=== PATIENT | female | born 1990 | race Caucasian/White ===

== ENCOUNTER 2024-09-17 09:43 | Outpatient (AMB) | payer OTHER, SELFPAY ==
--- NOTE | 2024-09-17 09:46 | A.OFFPC_ITS ---
Vital Signs 3 09/17/24 09:55 Height 5 ft 3 in Weight 169 lb 8 oz BMI 30.0 BP 122/85 Blood Pressure Location Rt brachial Position Sitting Respiration 16 Pulse 92 Pulse Source Pulse Oximeter Temp 98.2 F Temp Source Oral Pulse Oximetry (%) 100 Oxygen Delivery Method Room Air Intake Visit Reasons: est care/ headaches Intake Note: patient here for new patient visit c/o headaches Analytical Laboratory Technician Required: Yes Analytical Laboratory Technician Language: Hydroelectric Plant Maintainer Name: danay [id number] Information Interpreted: non-clinical & clinical Is last menstrual period known: Yes Last menstrual period: 07/08/24 Post menopausal: No Patient : No Allergies No Known Allergies Allergy (Verified 09/17/24 10:13) Medication List - Last Reconciled 09/17/24 by ABEL De Santiago No Known Home Meds Tobacco use date assessed: 09/17/24 Dental Screening Dental Screen Date: 09/17/24 Did you have a dental visit in the last 12 months?: Yes Did you have a dental problem in the last 6 months where you did not have access to dental care?: No Was dental information given to patient?: Patient has dentist HPI HPI Comments 2 History of Present Illness0 Details 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 Having R sided neck and head pain since. Denies any focal neuro complaints other than this pain, which is described as musculoskeletal. Palpitations: new. Thought r/t to OCP. Called [facility] who told her to fu with me as PCP. Denies assoc cardiac complaints. She is only 3 months post- Gastritis with hx of H Pylori - repotrs EGD in the past, would like GI referral for repeat EGD and tx. Also has hemorrhoids; not using otc meds. : during preg had recurrent UTI,baby born 05/2024; when puts arms around her has some on the L side. Denies any urinary complaints at this time. On OCP Exam: General: Well developed, well nourished, in no acute distress. Appears stated age. Head: Normocephalic, atraumatic. Eyes: Pupils are equal, round and reactive to light and accommodation. Conjunctivae are clear. Vision grossly normal. Ears: TMs clear AU, EACS WNL Nose: Patent, without discharge. Mouth: There are no ulcers or lesions noted. No inflammation, no post nasal drip, no plaques nor exudates. Neck: Supple, no adenopathy or thyromegaly. Lungs: Clear to auscultation bilaterally. No rales, rhonchi or wheeze noted. Good air flow in all iraheta. Heart: Regular rate and rhythm. No murmurs, click, rubs or gallops are noted. Abdomen: Bowel sounds present in all quadrants. The abdomen is soft, nontender, with no masses or organomegaly noted. No hernias are noted. Musculoskeletal: Joints are nontender, without swelling, redness, or effusions. Range of motion is observed to be normal. Pulses: Peripheral pulses are equal and palpable bilaterally. Extremities: No clubbing, cyanosis nor edema is noted. Neurologic: Gait and station normal. Cranial Nerves 2-12 intact. Motor strength grossly symmetrical and intact. No sensory loss. Balance normal. Skin: No rashes, ulcers, or lesions noted. Turgor is good. Skin color is good. Hair and nails are without abnormalities. Psych: Normal eye contact, affect and mood appropriate, and normal interactions. Patient is alert and appropriate to context. Plan: Check UA today along w/ labs Refer to Uro Refer to GI for GI c/o Use OTC products to treat hemorrhoids Refer to Neuro RTO 1 year CPE, sooner PRN An additional 30 minutes was spent addressing the problem(s) noted at todays visit. This includes time spent before the visit reviewing the chart, time spent during the visit, and time spent after the visit on documentation reviewing laboratory results, diagnostic imaging, medications, performing a medically necessary evaluation, counseling on diagnoses, care coordination, ordering appropriate tests, ordering appropriate medications, review of tests performed by other providers, reporting test results with the patient, communication with other healthcare providers. [facility] Medical History (Updated 09/17/24 @ 11:04 by Debora Mojica, KEY WORKER-) Headache Heart palpitations History of Helicobacter pylori infection Surgical History (Updated 09/17/24 @ 10:03 by Jordyn Haney MA) H/O: Family History (Updated 09/17/24 @ 10:02 by Jordyn Haney MA) Mother High blood pressure Social History Housing: House Patient Tobacco Use Status: Never used Tobacco e-Cigarette/Vaping Use: Never Used Second Hand Smoke Exposure: No service: No Current occupational status: unemployed Current occupational exposures/hazards: No Cognitive needs: No Hearing needs: No Vision needs: No Female Reproductive History Menstrual Date of last menstrual period: 07/08/24 Questionnaire PHQ-9 Over the last 2 weeks, how often have you been bothered by any of the following problems? 1. Little interest or pleasure in doing things: not at all 2. Feeling down, depressed, or hopeless: not at all 3. Trouble falling or staying asleep, or sleeping too much: not at all 4. Feeling tired or having little energy: not at all 5. Poor appetite or overeating: not at all 6. Feeling bad about yourself - or that you are a failure or have let yourself or your family down: not at all 7. Trouble concentrating on things, such as reading the newspaper or watching television: not at all 8. Moving or speaking so slowly that other people could have noticed. Or the opposite - being so fidgety or restless that you have been moving around a lot more than usual: not at all 9. Thoughts that you would be better off or of hurting yourself in some way: not at all Total score: 0 Depression Screening Interpretation: Negative Depression Screening Done: Yes 60033 - PHQ-9 Billing: Yes Source: Developed by Drs. Aravind Colon, Evelyn Howell, Kunal Salvador and colleagues, with an educational elsie from [employer]. Thrive Questionnaire Date Thrive assessed: 09/17/24 I am a: Patient What is your living situation today?: I have a steady place to live Within the past 12 months, did the food you bought not last and you didn't have the money to get more?: Never true Within the past 12 months, did you worry whether your food would run out before you got money to buy more?: Never true Do you have trouble paying for medicines?: No Do you have trouble getting transportation to medical appointments?: No Do you have trouble paying your heating and electricity bill?: No Do you have trouble taking care of your child, family member or friend?: No Do you have trouble with day-to-day activities such as bathing, preparing meals, shopping, managing finances, etc.?: No Are you currently unemployed and looking for a job?: No Are you interested in more education?: No Please select the resources that you would like help with: None Currently or been in a relationship where the following occur: No concerns reported THRIVE Score: 0 AUDIT C Alcohol Use Questionnaire (AUDIT-C) 1. How often do you have a drink containing alcohol?: Monthly or less 2. How many drinks containing alcohol do you have on a typical day when you are drinking?: 1 or 2 3. How often do you have six or more drinks on one occasion?: Never Total Score: 1 Score Reviewed/Action Taken: Yes CHAR-7 AMB Questionnaire CHAR-7 Date CHAR - 7 assessed: 09/17/24 Feeling nervous, anxious, or on edge: 0 = Not at all Not being able to stop or control worryin = Not at all Worrying too much about different things: 0 = Not at all Trouble relaxin = Not at all Being so restless that it is hard to sit still: 0 = Not at all Becoming easily annoyed or irritable: 0 = Not at all Feeling afraid as if something awful might happen: 0 = Not at all Total CHAR-7 score (0-4 normal; 5-9 mild; 10-14 moderate; 15-21 severe): 0 Source: Developed by Drs. Aravind Colon, Evelyn Howell, Kunal Salvador and colleagues, with an educational elsie from [employer]. CHAR-7 Assessment Billing CHAR-7 Assessment Tool: CHAR-7 Assessment 13873 Physical exam (Primary Care) Vital Signs: Last Vital Signs Temp 98.2 F 09/17/24 09:55 Pulse 92 09/17/24 09:55 Resp 16 09/17/24 09:55 BP 122/85 09/17/24 09:55 Pulse Ox 100 09/17/24 09:55 Oxygen Delivery Method Room Air 09/17/24 09:55 BMI result Body Mass Index 30.0 BMI Assessment/Plan discussion: High Tobacco/Smoking Status: Tobacco use Status Tobacco use date assessed 09/17/24 09/17/24 10:03 Patient Tobacco Use Status Never used Tobacco 09/17/24 10:03 e-Cigarette/Vaping Use Never Used 09/17/24 10:03 PHQ-9: PHQ-9 Score PHQ-9: Total score 0 09/17/24 10:11 Depression Screening Interpretation: Negative Thrive Assessment: Date of Thrive Assessment Date Thrive assessed 09/17/24 09/17/24 10:03 Currently or been in a relationship where the following occur: No concerns reported Coding Level of Care Code Est Pt Level 4 (21761) New Pt Prev Care 18-39yr(24476 Diagnoses Encounter for general adult medical examination with abnormal findings Z00.01 Obesity (BMI 30-39.9) E66.9 Recurrent UTI N39.0 Laboratory exam ordered as part of routine general medical examination Z00.00 Heart palpitations R00.2 Hemorrhoids, unspecified hemorrhoid type K64.9 Hemorrhoid type: unspecified Chronic post-traumatic headache, not intractable G44.329 Headache chronicity pattern: chronic headache Intractability: not intractable Impacted cerumen, bilateral H61.23 Additional Codes CHAR-7 Assessment Billing - CHAR-7 Assessment Tool: CHAR-7 Assessment 59974 ([id number]) PHQ-9 - 89475 - PHQ-9 Billing: Yes ([id number]) Assessment & Plan Assessment & Plan (1) Encounter for general adult medical examination with abnormal findings: Code(s): Z00.01 - Encounter for general adult medical examination with abnormal findings Category: Medical (2) Obesity (BMI 30-39.9): Code(s): E66.9 - Obesity, unspecified Category: Medical (3) Recurrent UTI: Comment: during no sx at this time Code(s): N39.0 - Urinary tract infection, site not specified Category: Medical (4) Laboratory exam ordered as part of routine general medical examination: Code(s): Z00.00 - Encounter for general adult medical examination without abnormal findings Category: Medical (5) Heart palpitations: Code(s): R00.2 - Palpitations Category: Medical (6) Hemorrhoids: Code(s): K64.9 - Unspecified hemorrhoids Category: Medical Qualifiers: Hemorrhoid type: unspecified Qualified Code(s): K64.9 - Unspecified hemorrhoids (7) Headache, post-traumatic: Code(s): G44.309 - Post-traumatic headache, unspecified, not intractable Category: Medical Qualifiers: Headache chronicity pattern: chronic headache Intractability: not intractable Qualified Code(s): G44.329 - Chronic post-traumatic headache, not intractable (8) Impacted cerumen, bilateral: Comment: offered and declined in office ear lavage Code(s): H61.23 - Impacted cerumen, bilateral Category: Medical Plan Earwax (Cerumen Impaction) Created in Ears Earwax, called cerumen, is produced by special wax-forming glands located in the skin of the outer one-third of the ear canal. It is normal to have cerumen in ear canal as this waxy substance serves as a self-cleaning agent with protective, lubricating, and antibacterial properties. The absence of earwax may result in dry, itchy ears. Self-cleaning means there is a slow and clinic mgr movement of earwax and skin cells from the eardrum to the ear opening. Old earwax is constantly being transported, assisted by chewing and jaw motion, from the ear canal to the ear opening where, most of the time, it dries, flakes, and falls out. What Are the Symptoms of an Earwax Blockage? Symptoms of an earwax problem may include: Earache Feeling of plugged hearing or fullness in the ear Partial hearing loss that gets worse Tinnitus, ringing, or noises in the ear Itching, odor, or discharge Coughing Pain Infection What Causes Earwax Blockage? When a patient has wax blockage against the eardrum, it is often because they have been probing the ear with such things as cotton-tipped swabs, edna pins, or twisted napkin corners. These objects only push the wax in deeper in the ear canal. Why Is It Dangerous to Use Swabs to Remove Earwax? Wax blockage is one of the most common causes of hearing loss. This is often caused by attempts to clean the ear with cotton swabs. Most cleaning attempts merely push the wax deeper into the ear canal which is shaped like an hourglass, causing a blockage at the narrowing part of the ear canal. In addition, accidental trauma to the ear drum or ear bones can occur if the swab is pushed too deep. Good intentions to keep ears clean may lessen the ability to hear. The ear is a delicate and complicated body part, including the skin of the ear canal and the eardrum. Therefore, special care should be given to this part of the body. Discontinue the habit of inserting cotton-tipped swabs or other objects into the ear canals. What Are the Treatment Options? Cleaning a working ear can be done by washing it with a soft cloth, but do not insert anything into the ear. Ideally, the ear canals should never have to be cleaned. However, that isn?t always the case. The ears should be cleaned when enough earwax gathers to cause symptoms or to prevent a needed assessment of the ear by your doctor. This condition is call cerumen impaction. Most cases of ear wax blockage respond to home treatments used to soften wax. Patients can try placing a few drops of mineral oil, baby oil, glycerin, or commercial drops in the ear. Detergent drops such as hydrogen peroxide or carbamide peroxide (available in most pharmacies) may also aid in the removal of wax. Irrigation or ear syringing is commonly used for cleaning and can be performed by a physician or at home using a commercially available irrigation kit. Common solutions used for syringing include water and saline, which should be warmed to body temperature to prevent dizziness. Ear syringing is most effective when water, saline, or wax dissolving drops are put in the ear canal 15 to 30 minutes before treatment. Caution is advised to avoid having your ears irrigated if you have diabetes, a hole in the eardrum (perforation), tube in the eardrum, skin problems such as eczema in the ear canal or a weakened immune system. >> If you have been prescribed Debrox, use as directed for 5 nights and return to the office on Day 6 for an ear lavage to remove the wax<< Manual removal of earwax is also effective. This is most often performed by an ENT (ear, nose, and throat) specialist, or furnace helper, using suction or special miniature instruments, and a microscope to magnify the ear canal. Manual removal is preferred if your ear canal is narrow, the eardrum has a perforation or tube, other methods have failed, or if you have skin problems affecting the ear canal, diabetes or a weakened immune system. When Should I Talk to a Doctor? If home treatments do not help, or if wax has accumulated so much that it blocks your ear canal and your ability to hear, an ENT specialist may prescribe eardrops designed to soften wax, or they may wash or vacuum it out. Your ENT specialist may also need to remove the wax under microscopic visualization. If there is a possibility of a perforation in the eardrum, consult a physician prior to trying any jsxw-wlo-[id number] remedies. Putting eardrops or other products in the ear with the presence of an eardrum perforation may cause pain or an infection. Washing water through such a hole could start an infection. If you are prone to repeated wax impaction or use hearing aids, consider seeing your doctor every six to 12 months for a checkup and routine preventive cleaning. What Questions Should I Ask My Doctor? What are the benefits and risks/side effects of different cerumen removal management options: earwax softening products, water irrigation vs. physical removal? Does cerumen accumulation vary with age, gender, familial or dietary intake? How do I manage swimming underwater with cerumen impaction? Should anything be done to the ears to prevent a buildup of earwax? How often should cerumen be removed from the ears? Are ear candles a safe option for removing earwax? Orders: Orders 2 Hemoglobin A1c Today N39.0 - Urinary tract infection, site not specified, Z00.00 - Encounter for general adult medical examination without abnormal findings, Z00.01 - Encounter for general adult medical examination with abnormal findings Lipid Panel Today N39.0 - Urinary tract infection, site not specified, Z00.00 - Encounter for general adult medical examination without abnormal findings, Z00.01 - Encounter for general adult medical examination with abnormal findings TSH reflex Free T4 Today N39.0 - Urinary tract infection, site not specified, Z00.00 - Encounter for general adult medical examination without abnormal findings, Z00.01 - Encounter for general adult medical examination with abnormal findings Vitamin B12 and Folate Today N39.0 - Urinary tract infection, site not specified, Z00.00 - Encounter for general adult medical examination without abnormal findings, Z00.01 - Encounter for general adult medical examination with abnormal findings Complete Blood Count no Diff Today R00.2 - Palpitations IRON PROFILE Today R00.2 - Palpitations Ferritin Today R00.2 - Palpitations Comprehensive Met. Panel Today N39.0 - Urinary tract infection, site not specified, Z00.00 - Encounter for general adult medical examination without abnormal findings, Z00.01 - Encounter for general adult medical examination with abnormal findings Microalbumin, Random (w Creat) Today N39.0 - Urinary tract infection, site not specified, Z00.00 - Encounter for general adult medical examination without abnormal findings, Z00.01 - Encounter for general adult medical examination with abnormal findings Vitamin D 25-OH Total Today N39.0 - Urinary tract infection, site not specified, Z00.00 - Encounter for general adult medical examination without abnormal findings, Z00.01 - Encounter for general adult medical examination with abnormal findings UA CC w/rflx Micro + Cult Today N39.0 - Urinary tract infection, site not specified, Z00.00 - Encounter for general adult medical examination without abnormal findings, Z00.01 - Encounter for general adult medical examination with abnormal findings Referrals 2 Urology Referral N39.0 - Urinary tract infection, site not specified Gastroenterology Referral K29.70 - Gastritis, unspecified, without bleeding, K64.9 - Unspecified hemorrhoids, Z86.19 - Personal history of other infectious and parasitic diseases Neurology Referral G44.309 - Post-traumatic headache, unspecified, not intractable Patient Instructions: Walk-In Care (Urgent Care): We Make it Easy Walk-in for urgent medical issues such as: ? Seasonal Allergies ? Insect Bites ? Cough ? Diarrhea ? Acute Asthma Attacks ? Back, Knee or Joint Pain ? Ear Infection ? Fever without a Rash ? Headaches ? Nausea ? [place] [facility], Rash or Skin Irritation ? Sore Throat ? Sports Physicals ? Vomiting Most insurances are accepted. Patients do not need to be part of the [facility] to seek care at the walk-in clinic. Locations [facility] [address], [place] [address] ? [phone] [facility] Walk-In Care in [place] provides services to ages 18 and over. Open Sunday-Sunday: 8 a.m. to 5 p.m. and Sunday: 9 a.m. to 3 p.m.* *Hours may vary due to staffing availability. To confirm Walk-In Care hours in [place], please call [phone]. [address] [facility], [place] [address] ? [phone] [facility] Walk-In Care in [place] provides services to ages 12 and over. Open Sunday-Sunday: 8 a.m. to 5 p.m. Hours may vary due to staffing availability. To confirm Walk-In Care hours in [place], please call [phone]. LABORATORY SERVICES: [facility] Lab ? Primary Location [address] [place] [address] Sunday through Sunday 6:00 AM ? 5:00 PM Sunday 7:00 AM ? 11:00 AM* [phone] The [facility] Lab is centrally located near the front entrance of the [facility] for easy outpatient access. Convenient parking is provided for outpatients. *Hours may vary due to staffing availability. To confirm Laboratory hours for any location, please call [phone]. Offsite Location For your convenience, we offer offsite laboratory draw stations at the following locations: [address] [place] [address] ? [address], [address] Sunday through Sunday 7:30 AM ? 1:00 PM* [phone] *Hours may vary due to staffing availability. To confirm Laboratory hours for any location, please call [phone]. [place] ? [address] Sunday through Sunday 6:00 AM ? 3:30 PM* Sunday 6:30 AM ? 3 PM* [phone] *Hours may vary due to staffing availability. To confirm Laboratory hours for any location, please call [phone] [place] [address] Sunday through Sunday 7:30 AM ? 4:00 PM* [phone] *Hours may vary due to staffing availability. To confirm Laboratory hours for any location, please call [phone] [place] [address] Sunday through 9:00 AM ? 4:00 PM* *Hours may vary due to staffing availability. To confirm Laboratory hours for any location, please call [phone]. Appointments are not necessary. Walk-ins are welcome. Like all the departments throughout the [facility], our Lab undergoes frequent reviews to ensure the quality and accuracy of test results, and our staff takes special pride in its status as a nationally accredited facility. Patient Portal: ONE PATIENT. ONE RECORD. BETTER CARE. [facility] has a fully integrated, cutting- edge mobile electronic health information system that has revolutionized the way we care for our patients and manage our organization. This system improves communication and coordination enabling us to provide safe, higher-quality care, and an overall positive experience for staff and patients. Our first priority, as always, is to deliver the highest quality care possible. The system is running in the background supporting that priority. This portal is for all [facility] services and practices. If you are experiencing any technical difficulties with enrolling or logging into the Patient Portal please complete the [facility] Patient Portal Technical Support Form. [facility] now offers a new secure on-line interactive tool for patients to review their health information ? ?Patient Portal. This interactive web portal will enable patients and their families to take an active role in their care by providing easy, secure access to their health information via the internet. The Patient Portal provides patients with instant access to their health information, including laboratory results, medications, allergies, demographic information, visit history, and more. In addition to managing their own care, parents and health care proxies with authorized consent will appreciate the ability to access the records of those individuals for whom they provide care. Please note: if you wish to gain access (Proxy) to another patient?s portal, you will be required to come to the Medical Records Department in person at [facility]. Both the patient giving proxy access and the proxy will need to provide photo identification and complete the appropriate authorization. The Patient Portal also allows track their appointments online. The [facility] Patient Portal also saves patients time by allowing them to submit updates to their demographic and contact information prior to their visits. Portal email notifications will also alert patients to any new activity on their portal, such as test results and new appointments. In order to initially enroll in the [facility] Patient Portal, you will need to enter some required information including the following: * your [facility] Medical Record number * your personal home email address * name * date of Please note: In order to enroll in the [facility] Patient Portal, we need to have your email address on file in your electronic medical record. ?The email address needs to be specific for one person (yourself) in order for your Portal enrollment to be successful. ?You can update your email address in person with our Registration staff when you are registering for a hospital visit. ?Otherwise, you will need to come to the Health Information Management (Medical Records) Department at [facility]. ?We are open from Sunday ? Sunday from 7:30 a.m. ? 4:30 p.m. ?You will be required to present a photo id. Once you have successfully enrolled in the Patient Portal, you will receive a one-time user id and password for the Portal, sent to your email address. ?This will allow you to log into the Patient Portal within 99 hrs and reset your own logon id and password, and define personal security questions. ?Once your permanent login and password have been set, you can log into the [facility] Patient Portal at any time via the blue button above or from the Portal Logon button on any page of the [facility] website. [facility] and [facility] encourage all of our patients to enroll in Patient Portal as it presents a valuable opportunity for patients and their families to actively participate in their care and stay healthy Welcome to [facility]. ?We look forward to working with you. Health screenings for women You should visit your health care provider from time to time, even if you are healthy. The purpose of these visits is to: Screen for medical issues Assess your risk for future medical problems Encourage a healthy lifestyle Update vaccinations and other preventive care services Help you get to know your provider in case of an illness Information Even if you feel fine, you should still see your provider for regular checkups. These visits can help you avoid problems in the future. For example, the only way to find out if you have high blood pressure is to have it checked regularly. High blood sugar and high cholesterol levels also may not have any symptoms in the early stages. A simple blood test can check for these conditions. There are specific times when you should see your provider or receive specific health screenings. The [place] Preventive Services Task Force publishes a list of recommended screenings. Below are screening guidelines for women ages 18 to 39. BLOOD PRESSURE SCREENING Your blood pressure should be checked at least once every 3 to 5 years if: Your blood pressure is in the normal range (top number less than 120 mm Hg and bottom number less than 80 mm Hg) You don't have risk factors for high blood pressure Ask your provider if you need your blood pressure checked more often if: The top number is 120 to 129 mm Hg or the bottom number is 70 to 79 mm Hg You have diabetes, heart disease, kidney problems, are overweight, or have certain other health conditions You have a first-degree relative with high blood pressure You are Black You had high blood pressure during a If the top number is 130 mm Hg or greater or the bottom number is 80 mm Hg or greater, this is considered stage 1 hypertension. Schedule an appointment with your provider to learn how you can reduce your blood pressure. Watch for blood pressure screenings in your area. Ask your provider if you can stop in to have your blood pressure checked. BREAST CANCER SCREENING Experts do not agree about the benefits of breast self-exams in finding breast cancer or saving lives. Talk to your provider about what is best for you. A screening mammogram is not recommended for most women under age 40. Your provider may discuss and recommend mammograms, MRI scans, or ultrasounds if you have an increased risk for breast cancer, such as: A mother or sister who had breast cancer at a young age (most often starting screening earlier than the age the close relative was diagnosed) You carry a high-risk genetic marker CERVICAL CANCER SCREENING Cervical cancer screening should start at age 21 years unless your provider advises otherwise. After the first test: Women ages 21 through 29 should have a Pap test every 3 years. Exoprts do not agree on whether HPV testing is recommended for this age group. Women ages 30 through 65 should be screened with either a Pap test every 3 years or the HPV test every 5 years or both tests every 5 years (called cotesting ). Women who have been treated for precancer (cervical dysplasia) should continue to have Pap tests for 20 years after treatment or until age 65, whichever is longer. If you have had your uterus and cervix removed (total hysterectomy), and you have not been diagnosed with cervical cancer or precancer (high grade cervical neoplasia), you do not need cervical cancer screening. CHOLESTEROL SCREENING Cholesterol screening should begin at: Age 45 for women with no known risk factors for coronary heart disease Age 20 for women with known risk factors for coronary heart disease Repeat cholesterol screening should take place: Every 5 years for women with normal cholesterol levels More often if changes occur in lifestyle (including weight gain and diet) More often if you have diabetes, heart disease, kidney problems, or certain other conditions DIABETES SCREENING You should be screened for diabetes starting at age 35 and then repeated every 3 years if you have no risk factors for diabetes. Screening may need to start earlier and be repeated more often if you have other risk factors for diabetes, such as: You have a first degree relative with diabetes. You are overweight or have obesity. You have high blood pressure, prediabetes, or a history of heart disease. Screening for diabetes should be done if you are planning to become and you are overweight and have other risk factors such as high blood pressure. DENTAL EXAM Go to the dentist once or twice every year for an exam and cleaning. Your dentist will evaluate if you need more frequent visits. EYE EXAM Have an eye exam every 5 to 10 years before age 40. If you have vision problems, have an eye exam every 2 years or more often if recommended by your provider. You should have an eye exam that includes an examination of your retina (back of your eye) at least every year if you have diabetes. IMMUNIZATIONS Commonly needed vaccines include: Flu shot: get one every year. COVID-19 vaccine: ask your provider what is best for you. Tetanus-diphtheria and acellular pertussis (Tdap) vaccine: have one at or after age 19 as one of your tetanus-diphtheria vaccines if you did not receive it as an adolescent. Tetanus-diphtheria: have a booster (or Tdap) every 10 years. Varicella vaccine: receive 2 doses if you never had chickenpox or the varicella vaccine. Hepatitis B vaccine: receive 2, 3, or 4 doses, depending on your exact circumstances. Measles, mumps, and rubella (MMR) vaccine: receive 1 to 2 doses if you are not already immune to MMR. Your provider can tell you if you are immune. Ask your provider about the human papillomavirus (HPV) vaccine if: You have not received the HPV vaccine in the past You have not completed the full vaccine series (you should catch up on this shot) Ask your provider if you should receive other immunizations if you have certain health problems that increase your risk for some diseases such as pneumonia. INFECTIOUS DISEASE SCREENING Women who are sexually active should be screened for chlamydia and gonorrhea up until age 25. Women 25 years and older should be screened for chlamydia and gonorrhea if at high risk. Screening for hepatitis C: All adults ages 18 to 79 should get a one-time test for hepatitis C. people should be screened at every . Screening for human immunodeficiency virus (HIV): All people ages 15 to 65 should get a one-time test for HIV. Depending on your lifestyle and medical history, you may also need to be screened for infections such as syphilis and HIV, as well as other infections. PHYSICAL EXAM All adults should visit their provider from time to time, even if they are healthy. The purpose of these visits is to: Screen for disease Assess your risk of future medical problems Encourage a healthy lifestyle Update your vaccinations and other preventive care services Maintain a relationship with a provider in case of an illness Your height, weight, and BMI should be checked at every exam. During your exam, your provider may ask you about: Depression and anxiety Diet and exercise Alcohol and tobacco use Safety issues, such as using seat belts, smoke detectors, and intimate partner violence Your medicines and risk for interactions SKIN SELF-EXAM Your provider may check your skin for signs of skin cancer, especially if you're at high risk, such as if you: Have had skin cancer before Have close relatives with skin cancer Have a weakened immune system OTHER SCREENING Talk with your provider about colon cancer screening if you have a strong family history of colon cancer or polyps, or if you have had inflammatory bowel disease or polyps yourself. Routine bone density screening of women under 40 is not recommended.
[2024-09-17 09:55] VITALS: BP 122/85; PULSE 92; RESP 16; TEMP 36.8; O2SAT 100
--- OUTSIDE RECORDS SUMMARY | 2024-09-17 11:01 | XMS_ITS | Clinical Summary ---
Author Organization [facility] ity Address [address] [place] [address] Care Team Providers Care Thoracic Medicine Physician Name Role Phone Unavailable Primary Care Provider Unavailabl e Social History Tobacco Use Types Packs/Day Years Used Date Smoking Tobacco: Never Assessed Comments Unknown Sex and Gender Information Value Date Recorded Sex Assigned at Not on file Legal Sex Female 1:38 PM EDT Gender Identity Not on file Sexual Orientation Not on file Plan of Treatment Health Maintenance Due Date Last Done Comments DTaP,Tdap,and Td Vaccines (1 - Tdap) 2008 Hepatitis B Vaccines (1 of 3 - 19+ 3-dose series) 2008 Cervical Cancer Screening: P ap Smear 2010 Depression Screening 01/18/2024 HIV Screening 01/18/2024 Hepatitis C Screening 01/18/2024 Social Influencers of Health Screening 01/18/2024 COVID-19 Vaccine ( - 2023-2 5 season) 2024 Influenza Vaccine (#1) 2024 HIB Vaccines Aged Out No longer eligi ble based on patient's age to complete this topic HPV Vaccines Aged Out No longer eligi ble based on patient's age to complete this topic Hepatitis A Vaccines Aged Out No long er eligible based on patient's age to complete this topic IPV Vaccines Aged Out No longer eligi ble based on patient's age to complete this topic MMR Vaccines Aged Out No longer eligi ble based on patient's age to complete this topic Meningococcal ACWY Vaccine Aged Out N o longer eligible based on patient's age to complete this topic Meningococcal B Vacine Aged Out No lo nger eligible based on patient's age to complete this topic Pneumococcal Vaccine: Pediat rics (0 to 5 Years) and At-Risk Patients (6 to 64 Years) Aged Out No longer eligible b ased on patient's age to complete this topic RSV Immunization Patients Un terell 20 months Aged Out No longer eligible b ased on patient's age to complete this topic Varicella Vaccines Aged Out No longer eligible based on patient's age to complete this topic
== END 2024-09-17 10:41 | disposition home or self-care (01) ==
LOC: HO.HMCFM 09:44
PROVIDERS: PCP Nurse Practitioner Family; Visit Provider Nurse Practitioner Family
DX: Z00.00 Encounter for general adult medical examination without abnormal findings (principal); N39.0 Urinary tract infection, site not specified; R00.2 Palpitations; E66.9 Obesity, unspecified; Z68.30 Body mass index [BMI] 30.0-30.9, adult; K64.9 Unspecified hemorrhoids; G44.329 Chronic post-traumatic headache, not intractable; H61.23 Impacted cerumen, bilateral

== ENCOUNTER → 2024-09-17 09:43 | Outpatient (BNVA) | payer OTHER, SELFPAY | PROVIDERS: PCP Nurse Practitioner Family; Visit Provider Nurse Practitioner Family | DX: Z00.01 Encounter for general adult medical examination with abnormal findings (principal); E66.9 Obesity, unspecified; Z68.30 Body mass index [BMI] 30.0-30.9, adult; N39.0 Urinary tract infection, site not specified; R00.2 Palpitations; K64.9 Unspecified hemorrhoids; G44.329 Chronic post-traumatic headache, not intractable; H61.23 Impacted cerumen, bilateral; Z71.3 Dietary counseling and surveillance | CPT/HCPCS: 96127; 99212; 99385 ==

== ENCOUNTER 2024-09-17 11:02 | Outpatient (REF) | payer OTHER, SELFPAY ==
--- OUTSIDE RECORDS SUMMARY | 2024-09-17 13:20 | XMS_ITS | Clinical Summary ---
Author Organization [facility] ity Address [address] [place] [address] Care Team Providers Care Residential Mortgage Underwriter Name Role Phone Unavailable Primary Care Provider [...] Influencers of Health Screening 01/18/2024 COVID-19 Vaccine (2023-2 5 season) 2024 Influenza Vaccine (Season Ended) 2025 HIB Vaccines Aged Out No longer eligi [...]
[2024-09-17 14:20] LABS: Appearance Urine Clear; Color Urine Yellow; Glucose Urine UA Negative (Negative); Leukocyte Esterase Urine Negative (Negative); Nitrite Urine Negative (Negative); Specific Gravity - Urine <= 1.005 (1.005-1.025); Urine Blood Negative (Negative); Urine Ketones Negative (Negative); Urine Protein Negative (Neg-Trace)
[2024-09-17 14:21] LABS: Hematocrit 41.5 % (37.0-47.0); Hemoglobin 13.9 g/dl (12.0-16.0); Mean Corpuscular HGB Conc 33.5 g/dl (31.0-35.0); Mean Corpuscular Hemoglobin 29.5 pg (27.0-33.0); Mean Corpuscular Volume 88.1 fL (80.0-98.0); Mean Platelet Volume 11.8 fL (9.4-12.3); Platelet Count 206 X10*3/uL (160-400); Red Blood Count 4.71 X10*6/uL (4.20-5.50); Red Cell Distribution Width 13.7 % (11.0-16.0); White Blood Count 4.9 X10*3/uL (4.8-10.8)
[2024-09-17 14:38] LABS: Estimated Average Glucose 108 mg/dL; Hemoglobin A1C 129.3705 umol/L; Hemoglobin A1c % 5.4 % (<6.0); Total Hemoglobin (HGBA1C) 3621.3587 umol/L
[2024-09-17 14:50] LABS: Microalbumin Urine < 5.0 mg/L
[2024-09-17 14:55] LABS: Albumin Level 4.5 g/dL (3.5-5.0); Alkaline Phosphatase 93 U/L (39-117); Anion Gap 10 (12-20); Aspartate Amino Transferase 23 U/L (5-31); Bilirubin Total 0.5 mg/dL (0.0-1.0); Blood Urea Nitrogen 9 mg/dL (9-16); Calcium 9.4 mg/dL (8.4-10.2); Carbon Dioxide 29 mmol/L (22-29); Chloride 104 mmol/L (96-108); Cholesterol 137 mg/dL (<200); Estimated Glomerular Filt Rate > 60; Glucose Random 99 mg/dL (60-115); HDL Cholesterol 43 mg/dL (>40); Iron 108 mcg/dL (30-160); LDL Cholesterol Calculated 79 mg/dL (<100); Percent Iron Saturation 35 % (15-50); Potassium 3.3 mmol/L (3.3-5.1); Sodium 140 mmol/L (135-145); Total Iron Binding Capacity 309 mcg/dL (228-428); Triglycerides 76 mg/dL (<150); Unsaturated Iron Binding 201 ug/dL
[2024-09-17 15:06] LABS: Folate 16.7 ng/mL (> or = 4.0); Vitamin B12 416 pg/mL (200-900)
[2024-09-17 15:25] LABS: Alanine Aminotransferase 27 U/L (0-31); Ferritin 26 ng/mL (10-122); TSH reflex Free T4 1.38 uIU/mL (0.32-4.0); Vitamin D 25-OH Total 36.3 ng/mL (>30)
== END 2024-09-17 11:03 | disposition home or self-care (01) ==
LOC: HO.WFDLDS 11:02
PROVIDERS: Visit Provider Nurse Practitioner Family
DX: Z00.00 Encounter for general adult medical examination without abnormal findings (principal); Z00.01 Encounter for general adult medical examination with abnormal findings; N39.0 Urinary tract infection, site not specified; R00.2 Palpitations
CPT/HCPCS: 36415; 80053; 80061; 81003; 82306; 82570; 82607; 82728; 82746; 83036; 83540; 84443; 85027

== ENCOUNTER 2024-09-24 13:55 | Outpatient (AMB) | payer OTHER, SELFPAY ==
--- NOTE | 2024-09-24 13:53 | A.OFFPC_ITS ---
Intake Visit Reasons: review labs Intake Note: telehealth to review labs Automobile Insurance Claim Examiner Required: No Allergies No Known Allergies Allergy (Verified 09/24/24 16:30) Medication List - Last Reconciled 09/24/24 by ABEL De Santiago No Known Home Meds Tobacco use date assessed: 09/24/24 Dental Screening Dental Screen Date: 09/24/24 Did you have a dental visit in the last 12 months?: Yes Did you have a dental problem in the last 6 months where you did not have access to dental care?: No Was dental information given to patient?: Patient has dentist HPI HPI Comments History of Present Illness Details Automobile Insurance Claim Examiner: [id number] 34 y/o Persian speaking F with obesity, headaches, gastritis, hx of H Pylori Social: children Surgery: c section, gallbladder removal, tummy tuck, liposuction Health Maintenance: PAP done w/ outside TECHNOLOGY MANAGER, will need to request records Tdap 2024 Flu UTD per reports Specialists: TECHNOLOGY MANAGER - [facility] Telehealth visit to review labs - see results below. I was able to let her know all of her labs were WNL Unfortunately, the call disconnected after this. I did call her back and the call went to [employer] The senior trial attorney left a message to call back if she had any questions. [facility] Medical History (Updated 09/24/24 @ 16:41 by ABEL De Santiago) Headache Heart palpitations History of Helicobacter pylori infection Surgical History (Updated 09/17/24 @ 10:03 by Jordyn Haney MA) H/O: Family History (Updated 09/17/24 @ 10:02 by Jordyn Haney MA) Mother High blood pressure Social History Housing: House Patient Tobacco Use Status: Never used Tobacco e-Cigarette/Vaping Use: Never Used Second Hand Smoke Exposure: No service: No Current occupational status: unemployed Current occupational exposures/hazards: No Cognitive needs: No Hearing needs: No Vision needs: No Questionnaire Thrive Questionnaire Date Thrive assessed: 09/17/24 CHAR-7 AMB Questionnaire CHAR-7 Date CHAR - 7 assessed: 09/17/24 Source: Developed by Drs. Aravind Colon, Evelyn Howell, Kunal Salvador and colleagues, with an educational elsie from [employer]. Physical exam (Primary Care) Tobacco/Smoking Status: Tobacco use Status Tobacco use date assessed 09/24/24 09/24/24 13:55 Patient Tobacco Use Status Never used Tobacco 09/24/24 13:55 e-Cigarette/Vaping Use Never Used 09/24/24 13:55 Thrive Assessment: Date of Thrive Assessment Date Thrive assessed 09/17/24 09/24/24 13:55 Telehealth Telehealth Telehealth Platform: [facility] Location of provider rendering services: practice address Location of patient: address on file Patient Identification confirmed using: Name, : Yes Telehealth method: voice only Patient verbally consented to treatment: Yes Patient verbally consented to billing insurance company: Yes Patient informed of any privacy concerns related to visit: Yes Minutes spent on Phone/Video with Pt.: 8 Results Reviewed Results Reviewed: RUN: 09/24/24 1627 PAGE 1 [facility] [address] [place] [id number] Laboratory Sample Carrier: Yoel Longoria M.D. Specimen Inquiry Name: Shikha Ann Age/Sex: 34/F : 1990 Unit#: [id number] Attend Dr: Debora Mojica Re09/17/24 Status: DEP REF Location: [facility]DL[facility] Disch: SPEC : [id number] VICKI: 09/17/24 STATUS: COMP REQ : [id number] RECD: 09/17/[address]: Debora Mojica COMP: 09/17/24 ENTERED: 09/17/[address]: ORDERED: CBC No Diff Test Result Flag Reference WBC 4.9 4.8-10.8 X10*3/uL RBC 4.71 4.20-5.50 X10*6/uL HGB 13.9 12.0-16.0 g/dl HCT 41.5 37.0-47.0 % MCV 88.1 80.0-98.0 fL MCH 29.5 27.0-33.0 pg MCHC 33.5 31.0-35.0 g/dl RDW 13.7 11.0-16.0 % PLT 206 160-400 X10*3/uL MPV 11.8 9.4-12.3 fL NRBC Pct Auto 0.0 0.0-0.2 /100WBC NRBC Abs Auto 0.000 0.0-0.012 X10*3/uL RUN: 09/24/24 1628 PAGE 1 [facility] [address] [place] [id number] Laboratory Sample Carrier: Yoel Longoria M.D. Specimen Inquiry Name: Shikha Ann Age/Sex: 34/F : 1990 Unit#: [id number] Attend Dr: Debora Mojica Re09/17/24 Status: DEP REF Location: [facility] Disch: SPEC : [id number] VICKI: 09/17/24 STATUS: COMP REQ : [id number] RECD: 09/17/[address]: Debora Mojica COMP: 09/17/24 ENTERED: 09/17/24-[address]: ORDERED: CMP, IRON PROF, Ferritin, Lipid Panel, Vitamin D 25-OH, TSH Rflx Test Result Flag Reference Sodium 140 135-145 mmol/L Potassium 3.3 3.3-5.1 mmol/L CL 104 96-108 mmol/L CO2 29 22-29 mmol/L Gap 10 L 12-20 BUN 9 9-16 mg/dL Creat 0.68 0.5-1.4 mg/dL eGFR > 60 Chronic Kidney Disease: Estimated GFR < 60 mL/min/1.73m2 Severe Kidney Disease: Estimated GFR < 15 mL/min/1.73m2 Glucose, Random 99 60-115 mg/dL CA 9.4 8.4-10.2 mg/dL Iron 108 30-160 mcg/dL TIBC 309 228-428 mcg/dL Saturation 35 15-50 % UIBC 201 ug/dL Ferritin 26 10-122 ng/mL Total Bili 0.5 0.0-1.0 mg/dL AST (GOT) 23 5-31 U/L ALT (GPT) 27 0-31 U/L Protein, Total 8.0 6.5-8.0 g/dL Alb 4.5 3.5-5.0 g/dL Triglyceride 76 <150 mg/dL Desirable Triglyceride: less than 150 mg/dL Borderline High Triglyceride 150-199 mg/dL High Triglyceride: 200-499 mg/dL Very High Triglyceride: greater than or equal to 5OO mg/dL Cholesterol 137 <200 mg/dL Desirable Cholesterol: less than 200 mg/dL Borderline High Cholesterol: 200-239 mg/dL High Cholesterol: greater than 239 mg/dL LDL Calculated 79 <100 mg/dL Desirable LDL: less than 100 mg/dL Near Optimal/Above Optimal LDL: 110-129 mg/dL Borderline High LDL: 130-159 mg/dL High LDL: 160-189 mg/dL Very High LDL: greater than or equal to 190 mg/dL HDL 43 >40 mg/dL Desirable HDL: greater than 40 mg/dL Note: This HDL assay may give artificially low results in patients with liver disease. Alk Phos 93 39-117 U/L Vitamin D 25-OH 36.3 >30 ng/mL Health Based Reference Values* < 20 ng/mL Deficient 20-30 ng/mL Insufficient > 30 ng/mL Sufficient *Ernesto MORRIS. N Engl J Med. 2007;357:266-280 There is no well-established upper level of normal vitamin D levels. Some laboratories use 50 ng/mL as an upper limit of normal. However, toxicity is patient-dependent and may occur at any level. Careful correlation with the patient's presentation is necessary and, if there is concern for vitamin D toxicity, treatment should be considered irrespective of the serum level. Care must be taken in interpreting Vitamin D results from different laboratories and methodologies. Published data demonstrated that results from patients undergoing hemodialysis may show a negative bias when tested with various automated 25-OH vitamin D assays when compared to LC-MS/MS. When testing samples from patients whose predominant form of Vitamin D is Vitamin D2, such as patients receiving Vitamin D2 supplementation, results that are subtherapeutic should be confirmed with another method such as LC-MS/MS. TSH 1.38 0.32-4.0 uIU/mL END OF REPORT RUN: 09/24/24 4089 PAGE 1 [facility] [address] [place] [id number] Laboratory Sample Carrier: Yoel Longoria M.D. Specimen Inquiry Name: Shikha Ann Age/Sex: 34/F : 1990 Unit#: [id number] Attend Dr: Debora Mojica Re09/17/24 Status: DEP REF Location: [facility] Disch: SPEC : [id number] VICKI: 09/17/24 STATUS: COMP REQ : [id number] RECD: 09/17/24 [facility] DR: Debora Mojica COMP: 09/17/24 ENTERED: 09/17/24 OT : ORDERED: Ua Clean Catch Test Result Flag Reference Ur Color Yellow Ur Appear Clear PH 6.0 5.0-9.0 Ur Glu Negative Negative mg/dL Urine Blood Negative Negative Spec Leota Ur <= 1.005 1.005-1.025 Urine Protein Negative Neg-Trace mg/dL Urine Ketones Negative Negative mg/dL Ur Nitrite Negative Negative Ur Kayode Esterase Negative Negative END OF REPORT Coding Level of Care Code Tele Est Pt Level 1 (59882) Complex EM visit Add On G2211 Diagnoses Health education/counseling Z71.9 Assessment & Plan Assessment & Plan (1) Health education/counseling: Code(s): Z71.9 - Counseling, unspecified Category: Medical Plan .
--- OUTSIDE RECORDS SUMMARY | 2024-09-24 16:11 | XMS_ITS | Clinical Summary ---
Author Organization [facility] ity Address [address] [place] [address] Care Team Providers Care Print Producer Name Role Phone Unavailable Primary Care Provider [...] age to complete this topic Meningococcal B Vaccine Aged Out No l onger eligible based on patient's age to complete [...]
== END 2024-09-24 17:05 | disposition home or self-care (01) ==
LOC: HO.HMCFM 13:55
PROVIDERS: PCP Nurse Practitioner Family; Visit Provider Nurse Practitioner Family
DX: Z71.9 Counseling, unspecified (principal)

== ENCOUNTER → 2024-09-24 13:55 | Outpatient (BNVA) | payer OTHER, SELFPAY | PROVIDERS: PCP Nurse Practitioner Family; Visit Provider Nurse Practitioner Family ==

== ENCOUNTER 2024-10-13 12:21 | Outpatient (AMB) | payer OTHER, SELFPAY ==
--- NOTE | 2024-10-13 12:16 | MHC.PC.OV ---
Intake Visit Reasons: review labs Intake Note: Telehealth to review labs Steel Rigger Required: No Allergies No Known Allergies Allergy (Verified 10/13/24 14:15) Medication List - Last Reconciled 10/13/24 [facility] levonorgestrel-ethinyl estrad 0.1-20 mg-mcg (Aviane) 1 tab PO DAILY Tobacco use date assessed: 10/13/24 Dental Screening Dental Screen Date: 10/13/24 Did you have a dental visit in the last 12 months?: Yes Did you have a dental problem in the last 6 months where you did not have access to dental care?: No Was dental information given to patient?: Patient has dentist HPI HPI Comments History of Present Illness Details Steel Rigger: [id number] 34 y/o Yi speaking F with obesity, headaches, gastritis, hx of H Pylori Social: children Surgery: c section, gallbladder removal, tummy tuck, liposuction Health Maintenance: PAP done w/ outside NURSING SURGICAL SERVICES DIRECTOR, will need to request records Tdap 2024 Flu UTD per reports Specialists: NURSING SURGICAL SERVICES DIRECTOR - [facility] Uro Telehealth visit to review labs I was able to let her know all of her labs were WNL She states she reviewed the labs herself and it shows she has high blood sugar and has diabetes I reviewed the labs again, a total fo 4 times so far. Her labs are normal! She also states she googled that her Creatinine is higher than it should be Once again, reviewed, her labs are normal. Explained in detail her normal labs, discouraged used of [employer] for lab interpretation. Offered reassurance. She was grateful for the explanation and felt reassured knowing her labs were wnl. I will see her again next year for her CPE sooner PRN Total time spent caring for the patient today was Total time spent caring for the patient today was 21 minutes. This includes time spent before the visit reviewing the chart, time spent during the visit, and time spent after the visit on documentation, reviewing laboratory results, diagnostic imaging, medications, performing a medically necessary evaluation, counseling on diagnoses, care coordination, ordering appropriate tests, ordering appropriate medications, review of tests performed by other providers, reporting test results with the patient, communication with other healthcare providers. minutes. This includes time spent before the visit reviewing the chart, time spent during the visit, and time spent after the visit on documentation, reviewing laboratory results, diagnostic imaging, medications, performing a medically necessary evaluation, counseling on diagnoses, care coordination, ordering appropriate tests, ordering appropriate medications, review of tests performed by other providers, reporting test results with the patient, communication with other healthcare providers. [facility] Medical History (Updated 09/24/24 @ 16:41 by Debora Mojica, [facility]) Headache Heart palpitations History of Helicobacter pylori infection Surgical History (Updated 09/17/24 @ 10:03 by Jordyn Haney MA) H/O: Family History (Updated 09/17/24 @ 10:02 by Jordyn Haney MA) Mother High blood pressure Social History Housing: House Patient Tobacco Use Status: Never used Tobacco e-Cigarette/Vaping Use: Never Used Second Hand Smoke Exposure: No service: No Current occupational status: unemployed Current occupational exposures/hazards: No Cognitive needs: No Hearing needs: No Vision needs: No Questionnaire Thrive Questionnaire Date Thrive assessed: 09/16/24 I am a: Patient What is your living situation today?: I have a steady place to live Within the past 12 months, did the food you bought not last and you didn't have the money to get more?: Never true Within the past 12 months, did you worry whether your food would run out before you got money to buy more?: Never true Do you have trouble paying for medicines?: No Do you have trouble getting transportation to medical appointments?: No Do you have trouble paying your heating and electricity bill?: No Do you have trouble taking care of your child, family member or friend?: No Do you have trouble with day-to-day activities such as bathing, preparing meals, shopping, managing finances, etc.?: No Are you currently unemployed and looking for a job?: No Are you interested in more education?: No Please select the resources that you would like help with: None Currently or been in a relationship where the following occur: No concerns reported THRIVE Score: 0 CHAR-7 AMB Questionnaire CHAR-7 Date CHAR - 7 assessed: 09/17/24 Source: Developed by Drs. Aravind Colon, Evelyn Howell, Kunal Salvador and colleagues, with an educational elsie from [employer]. Physical exam (Primary Care) Tobacco/Smoking Status: Tobacco use Status Tobacco use date assessed 10/13/24 10/13/24 12:18 Patient Tobacco Use Status Never used Tobacco 10/13/24 12:18 e-Cigarette/Vaping Use Never Used 10/13/24 12:18 Thrive Assessment: Date of Thrive Assessment Date Thrive assessed 09/16/24 10/13/24 12:18 Currently or been in a relationship where the following occur: No concerns reported Telehealth Telehealth Telehealth Platform: [employer] Location of provider rendering services: practice address Location of patient: address on file Patient Identification confirmed using: Name, : Yes Telehealth method: voice only Patient verbally consented to treatment: Yes Patient verbally consented to billing insurance company: Yes Patient informed of any privacy concerns related to visit: Yes Minutes spent on Phone/Video with Pt.: 18 Coding Level of Care Code Tele Est Pt Level 3 (21828) Complex EM visit Add On G2211 Diagnoses Health education/counseling Z71.9 Assessment & Plan Assessment & Plan (1) Health education/counseling: Code(s): Z71.9 - Counseling, unspecified Category: Medical Plan .
--- OUTSIDE RECORDS SUMMARY | 2024-10-13 14:44 | XMS_ITS | Clinical Summary ---
Author Organization [facility] ity Address [address] [place] [address] Care Team Providers Care Manager Transfer Name Role Phone Unavailable Primary Care Provider [...]
== END 2024-10-13 14:52 | disposition home or self-care (01) ==
LOC: HO.HMCFM 12:21
PROVIDERS: PCP Nurse Practitioner Family; Visit Provider Nurse Practitioner Family
DX: Z71.9 Counseling, unspecified (principal)

== ENCOUNTER → 2024-10-13 12:21 | Outpatient (BNVA) | payer OTHER, SELFPAY | PROVIDERS: PCP Nurse Practitioner Family; Visit Provider Nurse Practitioner Family | DX: Z13.89 Encounter for screening for other disorder (principal) ==

== ENCOUNTER 2024-11-12 12:47 | Outpatient (AMB) | payer OTHER, SELFPAY ==
--- NOTE | 2024-11-12 13:05 | A.OFFVIS_ITS ---
Intake Visit Reasons: recurrent UTI Intake Note: New patient presents today for initial visit for recurrent UTI Urology Medication:None Blood Thinner:None Antibiotic Allergies:None PVR:96ml Robotic Machine Operator Name: Breanna Geller Allergies No Known Allergies Allergy (Verified 11/12/24 13:42) Medication List - Last Reconciled 11/12/24 by ABEL Ventura No Known Home Meds HPI Comments Details: Shikha is a 34-year-old Indian-speaking female patient of Dr. Mojica was accompanied by her daughter at today's office visit. She has a past medical history of headaches and H pylori. She presents to the office today as a new patient for recurrent urinary tract infections. In discussion with the patient today she reports having followed up with her PCP as well as neurosurgery physician for 2 urinary tract infections she had while with her daughter. She reports since having had her daughter she has had no bothersome urinary issues or concerns. She reports her main concern is her renal function. In review of patient's chart it appears BUN:10/10 9 creatinine: 10/10 0.68 Unable to trend results as these are the only lab values at present time. We discussed lab values are within normal limits however she continues to express being told she had a decrease in kidney function. She is requesting referral to Nephrology. We discussed potential causes of urinary tract infections while . We also discussed obtaining retroperitoneal ultrasound for further assessment evaluation. In office urinalysis results were reviewed with the patient today. We did discussed importance of adequate hydration relation to recurrent urinary tract infections as well as overall health and well-being. She denies any UTI like symptoms at this time. She denies urinary urgency, urinary frequency, incontinence, nocturia, hematuria, dysuria, foul smelling urine, changes to urinary stream, flank pain, fever, and or chills. She is happy with her current voiding parameters. In review of patient's chart it appears during telehealth appointment with PCP reassurance was provided regarding normal lab values however patient continues to demand referral to Nephrology for further assessment evaluation. All questions were answered. She otherwise offers no other issues or concerns at this time. [facility] Medical History History of Helicobacter pylori infection Headache Heart palpitations Surgical History H/O: Family History Mother High blood pressure Social History Housing: House Patient Tobacco Use Status: Never used Tobacco e-Cigarette/Vaping Use: Never Used Second Hand Smoke Exposure: No service: No Current occupational status: unemployed Current occupational exposures/hazards: No Cognitive needs: No Hearing needs: No Vision needs: No Review of Systems Const All systems reviewed & are unremarkable except as noted in HPI and below Physical Exam Const General: cooperative, healthy appearing, comfortable, no acute distress, well developed, alert and awake Orientation/consciousness: patient oriented x3 Limitations: no limitations HEENT Head: Yes normal to inspection, Yes normocephalic and Yes atraumatic Ears: hearing grossly normal bilaterally Eyes General: appearance normal, both eyes and all related structures Neck Neck: Yes normal visual inspection and Yes trachea midline Chest Chest palpation & inspection: normal inspection of the chest Resp Effort & Inspection: normal respiratory effort and able to speak in complete sentences Cardio Rate: regular rate GI Inspection: Yes normal to inspection General: Yes no CVA tenderness Back/Spine/Pelvis Back: no CVA tenderness Skin General skin exam: no rashes or lesions noted Neuro General: patient oriented x3 Extrem General: Yes normal to inspection Psych Appearance: grossly normal and well kempt Mental Status: mental status grossly normal Speech and movement: Normal speech and movement present and Clear speech present Affect: normal affect Attitude: cooperative Thought process: Normal thought process present Thought content: Normal thought content present Insight: Fair insight present (Psych) Judgement: Fair judgement present (Psych) Results AMB Urinalysis, Automated UA Leukoctes 0 Kayode/uL Last Edit by Laverne Mccartney on 11/12/24 13:14 UA Nitrite Negative Last Edit by Laverne Mccartney on 11/12/24 13:14 UA Urobilinogen 3.5 mg/dL Last Edit by Laverne Mccartney on 11/12/24 13:14 UA Protein 0 mg/dL Last Edit by Laverne Mccartney on 11/12/24 13:14 UA pH 6.0 Last Edit by Laverne Mccartney on 11/12/24 13:14 UA Blood 0 Ryan/uL Last Edit by Laverne Mccartney on 11/12/24 13:14 UA Specific [place] 1.010 Last Edit by Laverne Mccartney on 11/12/24 13:14 UA Ketone Negative Last Edit by Laverne Mccartney on 11/12/24 13:14 UA Bilirubin 0 mg/dL Last Edit by Laverne Mccartney on 11/12/24 13:14 UA Glucose 0 mg/dL Last Edit by Laverne Mccartney on 11/12/24 13:14 Results Reviewed Results Reviewed: Laboratory Last Values Urine pH (Auto) 6.0 11/12/24 10:11 Specific [place] (Auto) 1.010 11/12/24 10:11 Urine Protein (Auto) 0 mg/dL 11/12/24 10:11 Glucose (UA)(Auto) 0 mg/dL 11/12/24 10:11 Urine Ketones (Auto) Negative 11/12/24 10:11 Urine Blood (Auto) 0 Ryan/uL 11/12/24 10:11 Urine Nitrite (Auto) Negative 11/12/24 10:11 Urine Bilirubin (Auto) 0 mg/dL 11/12/24 10:11 Urine Urobilinogen (Auto) 3.5 mg/dL 11/12/24 10:11 Leukocyte Esterase (Auto) 0 Kayode/uL 11/12/24 10:11 Assessment & Plan Assessment & Plan (1) Recurrent UTI: Comment: during no sx at this time Code(s): N39.0 - Urinary tract infection, site not specified Category: Medical (2) Anxiety about health: Code(s): R45.89 - Other symptoms and signs involving emotional state Category: Medical Plan In office urinalysis results reviewed with the patient today; as noted above. PVR 96 mL. We discussed potential causes of urinary tract infections while . Patient currently denies any bothersome urinary issues or concerns. She reports be happy with current voiding parameters. We refer to Nephrology per patient request. Will obtain retroperitoneal ultrasound for further assessment evaluation. denies urinary urgency, urinary frequency, incontinence, nocturia, hematuria, dysuria, foul smelling urine, changes to urinary stream, flank pain, fever, and or chills. She is happy with her current voiding parameters. Follow-up in 1-3 months with imaging to be completed prior; or sooner with any issues, concerns, and or questions. Orders: Orders US retroperitoneal comp Today N39.0 - Urinary tract infection, site not specified AMB Urinalysis Automated Today Z13.9 - Encounter for screening, unspecified AMB Post Void Residual by ultrasound Today N39.0 - Urinary tract infection, site not specified Referrals Nephrology Referral R45.89 - Other symptoms and signs involving emotional state Patient Instructions: The patient had an opportunity to ask questions regarding the treatment plan. All questions were answered. Physical exam, labs, and imaging were discussed and reviewed in detail. As well as risks, benefits, and discussion of treatment choices. No major barriers to understanding were identified. The patient expressed understanding and agreement with the above treatment plan. The patient was made aware they should contact our office by phone for worsening of their current condition, the appearance of new symptoms, or with any questions or concerns. Compliance is encouraged with any medications and follow up testing that is ordered. It is a privilege to be allowed the opportunity to participate in? your urological care.? Again, if you have any questions or concerns If you have any questions or concerns please do not hesitate to contact me. The office is [phone]. This note is constructed using voice recognition software. While every effort has been made to ensure accuracy freight loader errors may have been included. Yours sincerely, ABEL Ventura Coding Level of Care Code New Pt Level 3 (57532) Diagnoses Recurrent UTI N39.0 Anxiety about health R45.89
--- OUTSIDE RECORDS SUMMARY | 2024-11-12 13:28 | XMS_ITS | Clinical Summary ---
Author Organization [facility] ity Address [address] [place] [address] Care Team Providers Care Filling Station Laborer Name Role Phone Unavailable Primary Care Provider [...]
== END 2024-11-12 13:50 | disposition home or self-care (01) ==
LOC: HO.HUSH 12:48
PROVIDERS: PCP Nurse Practitioner Family; Visit Provider Nurse Practitioner Family
DX: N39.0 Urinary tract infection, site not specified (principal); R45.89 Other symptoms and signs involving emotional state; Z13.9 Encounter for screening, unspecified
CPT/HCPCS: 99203

== ENCOUNTER → 2024-11-12 12:47 | Outpatient (BNVA) | payer OTHER, SELFPAY | PROVIDERS: PCP Nurse Practitioner Family; Visit Provider Nurse Practitioner Family | DX: N39.0 Urinary tract infection, site not specified (principal); R45.89 Other symptoms and signs involving emotional state | CPT/HCPCS: 81003; 99202 ==

== ENCOUNTER 2024-11-18 15:37 | Outpatient (AMB) | payer OTHER, SELFPAY ==
--- NOTE | 2024-11-18 15:42 | MHC.PC.OV ---
Intake Visit Reasons: dermatology referral Intake Note: Telehealth for dermatology referral Bowl Attendant Required: Yes Bowl Attendant Language: Swedish Allergies No Known Allergies Allergy (Verified 11/18/24 16:44) Medication List - Last Reconciled 11/18/24 by KRISTEN De Santiago-ARELY drospirenone (contraceptive) (Slynd) 1 tab PO DAILY Tobacco use date assessed: 11/18/24 Dental Screening Dental Screen Date: 11/18/24 Did you have a dental visit in the last 12 months?: Yes Did you have a dental problem in the last 6 months where you did not have access to dental care?: No Was dental information given to patient?: Patient has dentist HPI HPI Comments History of Present Illness Details Bowl Attendant: [id number] 34 y/o Swedish speaking F with obesity, headaches, gastritis, hx of H Pylori Social: children Surgery: c section, gallbladder removal, tummy tuck, liposuction Health Maintenance: PAP done w/ outside MUSEUM DOCENT, will need to request records Tdap 2024 Flu UTD per reports Specialists: MUSEUM DOCENT - [facility] Telehealth visit c/o rash in between bilat breasts started 3 weeks ago itchy worse since onset only one w/ rash tried benadryl and cortisone w/o relief would like to see Derm ROS otherwise negative Plan Refer to [facility] in [place] Info provided to her via the portal Telehealth Attestation The documentation for this telehealth visit accurately represents the conversation and care provided during the session via phone. The patient has been explained that this is an interactive (audio/video) telehealth encounter and what that consists of. The patient understands and wishes to proceed. Big Stage platform was used. Total time spent caring for the patient today was 22 minutes. This includes time spent before the visit reviewing the chart, time spent during the visit, and time spent after the visit on documentation, reviewing laboratory results, diagnostic imaging, medications, performing a medically necessary evaluation, counseling on diagnoses, care coordination, ordering appropriate tests, ordering appropriate medications, review of tests performed by other providers, reporting test results with the patient, communication with other healthcare providers. [facility] Medical History History of Helicobacter pylori infection Headache Heart palpitations Surgical History H/O: Family History Mother High blood pressure Social History Housing: House Patient Tobacco Use Status: Never used Tobacco e-Cigarette/Vaping Use: Never Used Second Hand Smoke Exposure: No service: No Current occupational status: unemployed Current occupational exposures/hazards: No Cognitive needs: No Hearing needs: No Vision needs: No Questionnaire Thrive Questionnaire Date Thrive assessed: 09/16/24 CHAR-7 AMB Questionnaire CHAR-7 Date CHAR - 7 assessed: 09/17/24 Source: Developed by Drs. Aravind Colon, Evelyn Howell, Kunal Salvador and colleagues, with an educational elsie from [employer]. Physical exam (Primary Care) Tobacco/Smoking Status: Tobacco use Status Tobacco use date assessed 11/18/24 11/18/24 15:45 Patient Tobacco Use Status Never used Tobacco 11/18/24 15:45 e-Cigarette/Vaping Use Never Used 11/18/24 15:45 Thrive Assessment: Date of Thrive Assessment Date Thrive assessed 09/16/24 11/18/24 15:45 Telehealth Telehealth Telehealth Platform: [facility] Location of provider rendering services: practice address Location of patient: address on file Patient Identification confirmed using: Name, : Yes Telehealth method: voice only Patient verbally consented to treatment: Yes Patient verbally consented to billing insurance company: Yes Patient informed of any privacy concerns related to visit: Yes Minutes spent on Phone/Video with Pt.: 15 Coding Level of Care Code Tele Est Pt Level 3 (28075) Complex EM visit Add On G2211 Diagnoses Pruritic rash L28.2 Assessment & Plan Assessment & Plan (1) Pruritic rash: Code(s): L28.2 - Other prurigo Category: Medical Plan , Orders: Referrals Dermatology Referral L28.2 - Other prurigo
--- OUTSIDE RECORDS SUMMARY | 2024-11-18 16:59 | XMS_ITS | Clinical Summary ---
Author Organization [facility] ity Address [address] [place] [address] Care Team Providers Care Cake Mixer Name Role Phone Unavailable Primary Care Provider [...]
== END 2024-11-18 16:54 | disposition home or self-care (01) ==
LOC: HO.HMCFM 15:37
PROVIDERS: PCP Nurse Practitioner Family; Visit Provider Nurse Practitioner Family
DX: L28.2 Other prurigo (principal)

== ENCOUNTER → 2024-11-18 15:37 | Outpatient (BNVA) | payer OTHER, SELFPAY | PROVIDERS: PCP Nurse Practitioner Family; Visit Provider Nurse Practitioner Family ==

== ENCOUNTER 2024-11-25 09:35 | Outpatient (AMB) | payer OTHER, SELFPAY ==
--- NOTE | 2024-11-25 09:43 | HO.NEPHOV_ITS ---
Vital Signs 11/25/24 09:44 Height 5 ft 3 in Weight 175 lb 6 oz BMI 31.1 BP 122/90 H Blood Pressure Location Lt brachial Position Sitting Pulse 87 Pulse Source Pulse Oximeter Pulse Oximetry (%) 99 Oxygen Delivery Method Room Air Intake Visit Reasons: INP:Other sx and signs/ Please see internal ref Fisheries Officer Required: Yes Fisheries Officer Language: Bakery Technician Services: Fisheries Officer Present Fisheries Officer Name: Jigar [id number] Information Interpreted: clinical only Accompanied by: Significant Other Allergies No Known Allergies Allergy (Verified 11/25/24 09:44) HPI Comments Details: using educational sign language interpreter for translation. 34 years old lady with no significant PMH with only oral contraceptives is here as she is concerned about her labs. Her creatinine is 0.68 and GFR >60, urinalysis normal. no symptoms related to genitourinary disease PFSH Medical History History of Helicobacter pylori infection Headache Heart palpitations Surgical History H/O: Family History Mother High blood pressure Social History Housing: House Patient Tobacco Use Status: Never used Tobacco e-Cigarette/Vaping Use: Never Used Second Hand Smoke Exposure: No service: No Current occupational status: unemployed Current occupational exposures/hazards: No Cognitive needs: No Hearing needs: No Vision needs: No Review of Systems Const Details: Const Denies body aches, Denies chills, Denies excessive sweating and Denies fatigue Eyes Denies blurry vision and Denies change in vision ENT Denies bleeding gums and Denies change in voice Card Denies chest pain and Denies leg ulcers Resp Denies cough and Denies excessive phlegm production GI Denies abdominal pain and Denies bloating Denies hematuria, Denies urinary frequency and Denies difficulty voiding Musc Denies abnormal gait Neuro Denies Neuro-related abnormal movements, Denies abnormal gait and Denies behavioral changes Psych Denies behavioral changes and Denies change in appetite Endo Denies change in body appearance, Denies cold intolerance, Denies excessive sweating and Denies fatigue Physical Exam Vital Signs: Last Vital Signs Pulse 87 11/25/24 09:44 BP 122/90 H 11/25/24 09:44 Pulse Ox 99 11/25/24 09:44 Oxygen Delivery Method Room Air 11/25/24 09:44 BMI result Body Mass Index 31.1 General: Not in any acute distress, comfortable, sitting on the chair Nutritional Appearance: well nourished and overweight Eyes: appearance normal, both eyes and all related structures; Alignment and Position: alignment normal and position normal Neck: No lymphadenopathy, no thyromegaly Resp: bilateral air entry equal, no added sounds present Cardio: Regular rate, regular rhythm; Heart sounds: S1 normal heart sound present and S2 normal heart sound present, no edema GI: soft, nontender, no guarding, no hepatosplenomegaly : bladder normal to inspection, bladder normal to palpation, no renal angle tenderness Skin: no rashes or lesions noted and elasticity normal Neuro: oriented to person, oriented to place, oriented to time and moves all extremities Results Reviewed Nephrology Results: Hgb 13.9 g/dl (12.0-16.0) 09/17/24 WBC 4.9 X10*3/uL (4.8-10.8) 09/17/24 Plt Count 206 X10*3/uL (160-400) 09/17/24 Sodium 140 mmol/L (135-145) 09/17/24 Potassium 3.3 mmol/L (3.3-5.1) 09/17/24 Chloride 104 mmol/L (96-108) 09/17/24 Carbon Dioxide 29 mmol/L (22-29) 09/17/24 BUN 9 mg/dL (9-16) 09/17/24 Creatinine 0.68 mg/dL (0.5-1.4) 09/17/24 Calcium 9.4 mg/dL (8.4-10.2) 09/17/24 Urine Protein Negative mg/dL (Neg-Trace) 09/17/24 Urine Creatinine 29.10 mg/dL 09/17/24 Assessment & Plan Assessment & Plan (1) Anxiety about health: Code(s): R45.89 - Other symptoms and signs involving emotional state Category: Medical (2) Health education/counseling: Code(s): Z71.9 - Counseling, unspecified Category: Medical (3) Obesity (BMI 30-39.9): Code(s): E66.9 - Obesity, unspecified Category: Medical Plan Explained the patient in detail that GFR above 60 does not mean CKD stage 2. As there is little concerns about health if the GFR is above 60 and no proteinuria it is not accurately measured. I offered her doing a creatinine clearance to accurately measure her GFR but since it is a 24 hour sample it is cumbersome process, and she states wants to hold off on it for now. I explained her in detail that there not a concern about her renal health as of now, all the labs and urinalysis are normal. She doesnt have to followup in renal clinic. Time spent is about 35 minutes, 20 minutes on counseling the patient, educating, answering all the questions, 10 minutes on documentation, 5 minutes on chart review Coding Level of Care Code New Pt Level 4 (26912) Diagnoses Anxiety about health R45.89 Health education/counseling Z71.9 Obesity (BMI 30-39.9) E66.9
[2024-11-25 09:44] VITALS: BP 122/90; PULSE 87; O2SAT 99; BMI 31.1
--- OUTSIDE RECORDS SUMMARY | 2024-11-25 10:34 | XMS_ITS | Clinical Summary ---
Author Organization [facility] ity Address [address] [place] [address] Care Team Providers Care Owner Spa Director Name Role Phone Unavailable Primary Care Provider [...]
== END 2024-11-25 10:15 | disposition home or self-care (01) ==
LOC: HO.HKAS 09:36
PROVIDERS: PCP Nurse Practitioner Family; Visit Provider Internal Medicine Critical Care Medicine
DX: R45.89 Other symptoms and signs involving emotional state (principal); Z71.9 Counseling, unspecified; E66.9 Obesity, unspecified
CPT/HCPCS: 99204

== ENCOUNTER → 2024-11-25 09:35 | Outpatient (BNVA) | payer OTHER, SELFPAY | PROVIDERS: PCP Nurse Practitioner Family; Visit Provider Internal Medicine Critical Care Medicine | DX: R45.89 Other symptoms and signs involving emotional state (principal); Z71.9 Counseling, unspecified; E66.9 Obesity, unspecified | CPT/HCPCS: 99202 ==

== ENCOUNTER 2024-12-16 13:46 | Outpatient (REF) | payer OTHER, SELFPAY ==
--- NOTE | ~2024-12-16 | US_ITS ---
CLINICAL HISTORY: N39.0 - Urinary tract infection, site not specified US retroperitoneum Comparison: None Findings: Right kidney normal size and echotexture, 10.6 cm length. No hydronephrosis, mass or calculus. Normal color flow. Left kidney normal size and echotexture, 11.6 cm in length. No hydronephrosis, mass or calculus. Normal color flow. Smoothly distended urinary bladder, no mass, focal wall thickening or calculus, prevoid bladder volume 518 mL, incomplete emptying with postvoid residual volume 52 mL. Bilateral ureteral jets are not seen. Impression: 1. Incomplete emptying of urinary bladder with prominent postvoid residual volume. 2. Normal kidneys. This document has been electronically signed by: Noreen Lagunas MD on 12/18/2024 09:30:17
--- OUTSIDE RECORDS SUMMARY | 2024-12-16 14:57 | XMS_ITS | Clinical Summary ---
Author Organization [facility] ity Address [address] [place] [address] Care Team Providers Care Smash Piecer Name Role Phone Unavailable Primary Care Provider [...] 2023-2 5 season) 2024 Influenza Vaccine (#1) 2025 HIB Vaccines Aged Out No longer [...]
== END 2024-12-16 13:47 | disposition home or self-care (01) ==
LOC: HO.US 13:46
PROVIDERS: PCP Nurse Practitioner Family; Visit Provider Nurse Practitioner Family
DX: N39.0 Urinary tract infection, site not specified (principal)
CPT/HCPCS: 76770

== ENCOUNTER → 2024-12-16 13:51 | Outpatient (BNV) | payer OTHER, SELFPAY | PROVIDERS: PCP Nurse Practitioner Family; Visit Provider Radiology Diagnostic Radiology | DX: N39.0 Urinary tract infection, site not specified (principal) | CPT/HCPCS: 76770 ==

== ENCOUNTER 2025-02-12 13:18 | Outpatient (AMB) | payer OTHER, SELFPAY ==
[2025-02-12 13:20] VITALS: BP 110/78; PULSE 99; O2SAT 100; BMI 31.6
--- NOTE | 2025-02-12 13:20 | A.OFFVIS_ITS ---
Vital Signs 02/12/25 13:20 Height 5 ft 3 in Weight 178 lb 8 oz BMI 31.6 BP 110/78 Blood Pressure Location Rt brachial Position Sitting Pulse 99 Pulse Source Pulse Oximeter Pulse Oximetry (%) 100 Oxygen Delivery Method Room Air Intake Visit Reasons: [id number]-[id number] Headache Intake Note: NPV for headaches referred by PCP Tran Mojica Broadcast Maintenance Engineer Required: Yes Broadcast Maintenance Engineer Services: Broadcast Maintenance Engineer Present Broadcast Maintenance Engineer Name: iPad - Adryan ID: [id number] Accompanied by: Spouse Allergies No Known Allergies Allergy (Verified 02/12/25 13:25) Medication List - Last Reconciled 02/12/25 by KRISTEN Ibarra No Known Home Meds HPI Comments Details: History of Present Illness The patient is a right-handed 34-year-old female presenting for headache, and is accompanied by her spouse, Wojciech, and their 9-month-old child. Referral indicated posttraumatic headache following a mild concussion in July 2024; however, the patient states she has had migraine headache for many years. PMH is notable for GERD, gastritis, esophagitis, and occasional constipation, and surgical history of , cholecystectomy, tummy tuck. She reports that she did strike her head w/o LOC in July 2024, but did not seek medical attention at the time. She did present to her PCP office in September with persistent headaches. She reports her headaches are most often of a moderate severity, but she also has recurrent severe attacks. She describes her headache attacks as throbbing bilateral temporal pain associated with neck tightness, photophobia, phonophobia, nausea, difficulty concentrating, and activity intolerance. She is currently using as-needed ibuprofen or Excedrin, which he feels helps, but needs to be cautious with them due to her GI symptoms. She denies any known precipitating causes for the initial onset of these migraine attacks. Neurology last saw her in [id number] while she was still living in the [facility]. ROS is notable for:? General: Blurry vision HEENT: Throat discomfort History of concussion/head injury: In July 2024, denies exacerbation of migraine Mood d/o: Mild anxiety at times GI d/o: GERD, nausea, occasional constipation Skin: Itchy skin rashes Pertinent denials include: Denies usual neck pain, asthma, kidney stones Lifestyle considerations * Typical nutrition intake: Generally healthy, though depending on circumstances * Typical fluid intake per day: * Caffeine use: 1-2 cups per day, usually in the morning but occasionally in the evening * Sleep routine: Usual bedtime: 1-2 a.m. or 3 a.m. and wake-up time: 08:00 * Sleep difficulties: Denies usual sleep difficulties, though headache can interfere with sleep quality. 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 Has a 9-year-old and an 8-month-old child. * Family history of migraine: Father and brother Headache questionnaire * Types of headache disorders: 1 * Age/time of onset: Can not recall * Preceding causes: Denies initial preceding cause for migraine, however some exacerbation since July 2024 concussion * Previous work-up: Reports a historical CT before 2016 in the ER was unremarkable Typical headache characteristics * Prodrome symptoms: Denies * Aura: Denies * Pain intensity: Zptq-wi-[id number] to severe * Location, quality, characteristics: Bilateral temporal throbbing pulsating pain * Associated symptoms: Neck tightness, blurry vision, photophobia, phonophobia, osmophobia, nausea, cognitive difficulties, word-finding difficulties, activity intolerance, * Atypical associated symptoms: Denies * Postdrome: Unsure * Aggravating factors during this headache: Denies any * Triggers that provoke this headache: Stress, menstrual cycle * Time of day this headache usually occurs: No specific time of day * Duration and Frequency: Zthm-wz-eipbjqux attack occurs 1 time per week, l asting 1 day; severe migraine attack occurs 3 times per month, lasting 2-3 days. * Headache impact on the patient's quality of life: May need to miss family/social obligations Current treatment strategies * Current acute medication use/interventions: Ibuprofen or Excedrin may help, but needs to be limited due to gastritis symptoms * Current preventative medication use: None * Current non-pharmacological interventions: Rest, helps PFSH Medical History History of Helicobacter pylori infection Headache Heart palpitations Surgical History H/O: Family History Mother High blood pressure Social History Housing: House Patient Tobacco Use Status: Never used Tobacco e-Cigarette/Vaping Use: Never Used Second Hand Smoke Exposure: No service: No Current occupational status: unemployed Current occupational exposures/hazards: No Cognitive needs: No Hearing needs: No Vision needs: No Physical Exam Vital Signs: Last Vital Signs Pulse 99 02/12/25 13:20 BP 110/78 02/12/25 13:20 Pulse Ox 100 02/12/25 13:20 Oxygen Delivery Method Room Air 02/12/25 13:20 BMI result Body Mass Index 31.6 Const Orientation/consciousness: patient oriented x3 Resp Effort & Inspection: normal respiratory effort and able to speak in complete sentences Neuro Other: No palpable scalp tenderness. General: patient oriented x3 Cranial nerves: Yes CN's II-XII intact bilaterally Cognition (Neuro): normal cognition Gait exam (Neuro): Normal gait present Motor exam (neuro): 5/5 motor strength present throughout Deep tendon reflexes (DTR's): Right triceps reflex intensity grade: 2+, Left triceps reflex intensity grade: 2+, Rt Biceps (C5, C6): 2+, Left biceps reflex intensity grade: 2+, Right brachioradialis reflex intensity grade: 2+, Left brachioradialis reflex intensity grade: 2+, Right patellar reflex intensity grade: 2+ and Left patellar reflex intensity grade: 2+ Coordination: gwmpxc-li-cruo test normal, tandem gait normal and Romberg test negative Pupils: Normal pupillary reactivity/response: bilateral Psych Appearance: grossly normal Mental Status: mental status grossly normal Speech and movement: Normal speech and movement present Affect: normal affect Attitude: cooperative Thought process: Normal thought process present Assessment & Plan Assessment & Plan (1) Worsening headaches: Code(s): R51.9 - Headache, unspecified Category: Medical (2) Headache, post-traumatic: Code(s): G44.309 - Post-traumatic headache, unspecified, not intractable Category: Medical Qualifiers: Headache chronicity pattern: chronic headache Intractability: not intractable Qualified Code(s): G44.329 - Chronic post-traumatic headache, not intractable (3) Migraine without aura and without status migrainosus, not intractable: Code(s): G43.009 - Migraine without aura, not intractable, without status migrainosus Category: Medical Plan Discussion Notes I discussed with the patient that her symptoms appear consistent with migraine without aura, which appear to have been exacerbated by the concussion in July 2024. We went over the management strategies, including a trial of medications like Sumatriptan at the onset of migraine attacks, emphasizing its specific use for migraines and instructions on dose management. We discussed the benefits and side effects of the proposed medication, including somatic sensations. We discussed the initiation of migraine preventative therapies such as riboflavin and magnesium, and honored the patient's desire to avoid prescription migraine preventive medications at this time. Furthermore, we agreed to proceed with a brain MRI without contrast to explore potential causes of her ongoing migraine-like headaches with recurrent severe attacks to rule out structural abnormalities, given her history. Preventative measures and lifestyle modifications such as diet, exercise, and sufficient sleep were also discussed. She expressed understanding and agreement with the plan outlined, including potential follow-up after diagnostic testing. Patient was informed and verbally consented to the use of an ambient scribe for clinic note documentation during this visit. You are advised to undergo the following: Brain MRI with and without contrast Headache Management Tips Combining good self-care with some helpful tools can make managing headaches much easier. Healthy Habits ? Eat a balanced diet ? Drink enough water throughout the day, typically at least 64 oz of fluid per day ? Get regular, adequate sleep consisting of 7-9 hours of sleep per night ? Stay active with routine physical activity, typically at least 30 minutes 5 days per week ? Stay connected with friends and family, enjoy meaningful activities, and take care of your mood Tracking Your Headaches ? Write down when headaches happen, what helps, and any side effects of new treatments ? Tracking is most important after changes in your treatment plan ? Options: - Apps such as Migraine Power - A simple paper calendar Non-Medication Strategies ? Light sensitivity: special glasses may help (blue-light or FL-41 filters, green lenses) or green-light therapy - Avoid wearing dark sunglasses indoors ? Sound sensitivity: noise-canceling earplugs can reduce bothersome noise ? Neuromodulation devices: certain medical devices can be used alone or with medications to lower headache frequency and severity ? Neuromodulation devices: specific medical devices can be used alone or with medications to lower headache frequency and severity These strategies may not stop every attack, but over time, they can reduce headache frequency, intensity, and impact. For acute (as needed) headache treatment: It is important to take acute medications at the first sign of headache. However, please be aware that frequently using most acute medications may increase the frequency of your headache attacks, as well as make your other treatments less effective. * Trial Sumatriptan 100mg tab, 1/2 - 1 tab (50-100mg) at onset of headache, may repeat in 2 hours. Max of 2 tabs (200mg) per 24 hours. * May take sumatriptan with OTC Tylenol 650-1,000mg every 4-6 hours, Ibuprofen (liquid gels) 600mg every 6 hours, or Naproxen (liquid gels) 440mg q 12 hrs prn. * Potential adverse effects of triptans include, but are not limited to, nausea, fatigue, chest tightness/tingling (usually passes within a few minutes), and medication overuse headaches. Previous acute migraine medication trials: Ibuprofen and Excedrin-helpful but use limited by gastritis symptoms. Acute migraine medication contraindications: None at this time, however note that patient has desire for For headache prevention medication: Preventative medications should be taken routinely as prescribed for best effe ct, it may take several weeks for full effect to take effect. * Start Riboflavin 400mg daily in the morning * This is generally well tolerated, however some people may experience mild abdominal discomfort from use. * This will cause your urine to become bright yellow or orange, which is expected and not of any concern. * Start Magnesium 400mg daily at bedtime * Magnesium comes in many subtypes, such as magnesium oxide, glycinate, citrate, and even try magnesium combinations. Additionally magnesium comes in many forms, including tablets, capsules, powders or even liquid formulations. There is not a specific magnesium subtype or form known to be significantly more effective than another. Rather, the magnesium subtype inform that you best tolerate, is the best version for you. * Possible side effects of magnesium include, but are not limited to, GI upset, abdominal cramping, loose stools, and diarrhea Previous migraine prevention medication trials: None Migraine prevention medication contraindications: Depakote and Topamax due to desire for . We will follow-up upon review of above and with a follow-up clinic visit in 3-6 months or sooner as needed. Orders: Orders MR head/brain wo con 02/12/25 R51.9 - Headache, unspecified, G44.329 - Chronic post-traumatic headache, not intractable, E66.9 - Obesity, unspecified Medications: New riboflavin (vitamin B2) 400 mg PO DAILY 90 tabs 3RF 90 days sumatriptan succinate 50 - 100 mg orally at onset of headache, may repeat in 2 hrs PRN; max 2 tabs per day or 4 tabs/week (may take with OTC Ibuprofen liquigel 600mg) 12 tabs 6RF migraine headache 30 days magnesium glycinate 400 mg (4 x 100 mg magnesium) PO BEDTIME 360 caps 3RF 90 days Coding Level of Care Code New Pt Level 4 (30022) Diagnoses Worsening headaches R51.9 Chronic post-traumatic headache, not intractable G44.329 Headache chronicity pattern: chronic headache Intractability: not intractable Migraine without aura and without status migrainosus, not intractable G43.009
--- OUTSIDE RECORDS SUMMARY | 2025-02-12 13:53 | XMS_ITS | Clinical Summary ---
Author Organization [facility] ity Address [address] [place] [address] Care Team Providers Care Museum Attendant Name Role Phone Unavailable Primary Care Provider [...] Cervical Cancer Screening: P ap Smear 2010 HIV Screening 01/18/2024 Hepatitis C Screening 01/18/2024 Social Influencers of Health Screening 01/18/2024 COVID-19 Vaccine ( - 2023-2 5 season) 2024 Depression Screening 06/18/2024 Influenza Vaccine (#1) 2025 HIB Vaccines Aged [...] 5 Years) and At-Risk Patients (6 to 49 Years) Aged Out No longer eligible b ased on patient's age to complete this topic RSV Immunization Patients Un terell 20 months Aged Out No longer eligible b ased on patient's age to complete this topic Varicella Vaccines Aged Out No longer eligible based on patient's age to complete this topic
== END 2025-02-12 14:27 | disposition home or self-care (01) ==
LOC: HO.HSMS 13:19
PROVIDERS: PCP Nurse Practitioner Family; Visit Provider Nurse Practitioner Family
DX: R51.9 Headache, unspecified (principal); G44.329 Chronic post-traumatic headache, not intractable; G43.009 Migraine without aura, not intractable, without status migrainosus
CPT/HCPCS: 99204

== ENCOUNTER → 2025-02-12 13:18 | Outpatient (BNVA) | payer OTHER, SELFPAY | PROVIDERS: PCP Nurse Practitioner Family; Visit Provider Nurse Practitioner Family | DX: G43.009 Migraine without aura, not intractable, without status migrainosus (principal) | CPT/HCPCS: 99202 ==

== ENCOUNTER 2025-03-02 07:29 | Outpatient (REF) | payer OTHER, SELFPAY ==
--- OUTSIDE RECORDS SUMMARY | 2025-03-06 07:34 | XMS_ITS | Clinical Summary ---
Author Organization [facility] ity Address [address] [place] [address] Care Team Providers Care Lasting Machine Operator Bed Name Role Phone Unavailable Primary Care Provider [...]
== END 2025-03-02 07:30 | disposition home or self-care (01) ==
LOC: HO.LNP 07:29
PROVIDERS: Visit Provider Internal Medicine
DX: K29.70 Gastritis, unspecified, without bleeding (principal)
CPT/HCPCS: 83013

== ENCOUNTER 2025-03-02 10:07 | Outpatient (AMB) | payer OTHER, SELFPAY ==
--- NOTE | 2025-03-02 10:12 | MHC.OFFVIS ---
Vital Signs 03/02/25 10:15 Height 5 ft 3 in Weight 176 lb 5.917 oz BMI 31.2 BP 111/80 Blood Pressure Location Lt brachial Position Sitting Pulse 116 H Intake Visit Reasons: Gastritis, Hemorrhoids Intake Note: Shikha presents in the office as a new patient for Gastritis and Hemorrhoids. CC: Stats that she is feelilng okay and denies GI issues. Insurance Actuary Required: Yes Allergies No Known Allergies Allergy (Verified 02/12/25 13:25) HPI Comments Details: 34 y.o F with PMH of who is here for question of gastritis. Pt seen with Vanessa LOPEZ for mid level practitioner. Reports longstanding hx of chronic gastritis with H Pylori. Has had 3 attempts to treat with H Pylori. Most recently received H Pylori tx in 2019. SHe is unsure if it has been eradicated or she needs to be retreated. Otherwise no acute GI issues including abd pain, n,v, change in appetite. No fam hx of stomach ca or colon ca. Does not smoke or drink. [facility] Medical History History of Helicobacter pylori infection Headache Heart palpitations Surgical History H/O: Family History Mother High blood pressure Social History Housing: House Patient Tobacco Use Status: Never used Tobacco e-Cigarette/Vaping Use: Never Used Second Hand Smoke Exposure: No service: No Current occupational status: unemployed Current occupational exposures/hazards: No Cognitive needs: No Hearing needs: No Vision needs: No Review of Systems Const All systems reviewed & are unremarkable except as noted in HPI and below Physical Exam Exam Exam: No apparent distress Nonicteric Abdomen soft, nondistended Alert and oriented x3, normal gait Vital Signs: Last Vital Signs Pulse 116 H 03/02/25 10:15 BP 111/80 03/02/25 10:15 BMI result Body Mass Index 31.2 Assessment & Plan Assessment & Plan (1) Gastritis: Code(s): K29.70 - Gastritis, unspecified, without bleeding Category: Medical (2) H pylori ulcer: Code(s): K27.9 - Peptic ulcer, site unspecified, unspecified as acute or chronic, without hemorrhage or perforation; B96.81 - Helicobacter pylori [H. pylori] as the cause of diseases classified elsewhere Category: Medical Plan Reviewed with the pt that first order of the business will be to check if still has active H Pylori infection or if it has been eradicated. If H Pylori has been eradicated no further w.up needed. But if still pos, will need bismuth based quad therapy. Will reserve egd for quad therapy failure for C&S. Follow up 2 months if needed Orders: Orders H Pylori Breath Test Today Coding Level of Care Code New Pt Level 4 (52264) Diagnoses Gastritis K29.70 H pylori ulcer K27.9; B96.81
[2025-03-02 10:15] VITALS: BP 111/80; PULSE 116; BMI 31.2
--- OUTSIDE RECORDS SUMMARY | 2025-03-02 12:45 | XMS_ITS | Clinical Summary ---
Author Organization [facility] ity Address [address] [place] [address] Care Team Providers Care Ehs Teacher Name Role Phone Unavailable Primary Care Provider [...] 01/18/2024 Social Influencers of Health Screening 01/18/2024 Depression Screening 06/18/2024 COVID-19 Vaccine ( - 2023-2 5 season) 2025 Influenza Vaccine (#1) 2025 HIB Vaccines Aged [...]
== END 2025-03-02 10:50 | disposition home or self-care (01) ==
LOC: HO.HGI 10:08
PROVIDERS: PCP Nurse Practitioner Family; Visit Provider Internal Medicine
DX: K29.70 Gastritis, unspecified, without bleeding (principal); K27.9 Peptic ulcer, site unspecified, unspecified as acute or chronic, without hemorrhage or perforation; B96.81 Helicobacter pylori [H. pylori] as the cause of diseases classified elsewhere
CPT/HCPCS: 99204

== ENCOUNTER → 2025-03-02 10:07 | Outpatient (BNVA) | payer OTHER, SELFPAY | PROVIDERS: PCP Nurse Practitioner Family; Visit Provider Internal Medicine | DX: K29.70 Gastritis, unspecified, without bleeding (principal); K27.9 Peptic ulcer, site unspecified, unspecified as acute or chronic, without hemorrhage or perforation; B96.81 Helicobacter pylori [H. pylori] as the cause of diseases classified elsewhere | CPT/HCPCS: 99202 ==

== ENCOUNTER → 2025-04-01 09:47 | Outpatient (BNV) | payer OTHER, SELFPAY | PROVIDERS: PCP Nurse Practitioner Family; Visit Provider Student in an Organized Health Care Education/Training Program | DX: R51.9 Headache, unspecified (principal) | CPT/HCPCS: 70551 ==

== ENCOUNTER 2025-04-01 10:13 | Outpatient (REF) | payer OTHER, SELFPAY ==
--- NOTE | ~2025-04-01 | MR_ITS ---
CLINICAL HISTORY: R51.9 - Headache, unspecified MR Brain without gadolinium Comparison: None provided Findings: No restricted diffusion. No intra-axial mass or hemorrhage. No midline shift. No hydrocephalus. Vascular flow voids are intact. Orbital contents are unremarkable. The sinuses and mastoid air cells are clear. No focal bone lesion. IMPRESSION: No acute findings. This document has been electronically signed by: Scar Mccarthy MD on 04/01/2025 22:43:57
--- OUTSIDE RECORDS SUMMARY | 2025-04-01 12:08 | XMS_ITS | Clinical Summary ---
Author Organization [facility] ity Address [address] [place] [address] Care Team Providers Care Dumping Machine Operator Name Role Phone Unavailable Primary Care Provider [...] Cervical Cancer Screening: P ap Smear 2010 HPV Vaccines (1 - 3-dose SCD M series) 2016 HIV Screening 01/18/2024 Hepatitis C Screening 01/18/2024 Social Influencers of Health Screening 01/18/2024 Depression Screening 06/18/2024 COVID-19 Vaccine ( - 2023-2 5 season) 2025 Influenza Vaccine (#1) 2025 RSV Immunization Adult Patie nts (1 - 1-dose 75+ series) 2064 HIB Vaccines Aged Out No longer eligi [...]
== END 2025-04-01 10:14 | disposition home or self-care (01) ==
LOC: HO.MRI 10:13
PROVIDERS: PCP Nurse Practitioner Family; Visit Provider Nurse Practitioner Family
DX: G44.329 Chronic post-traumatic headache, not intractable (principal); E66.9 Obesity, unspecified
CPT/HCPCS: 70551

== ENCOUNTER 2025-05-06 10:36 | Outpatient (AMB) | payer OTHER, SELFPAY ==
--- NOTE | 2025-05-06 10:41 | MHC.OFFVIS ---
Vital Signs 05/06/25 10:43 Height 5 ft 3 in Weight 178 lb 9.191 oz BMI 31.6 BP 124/84 Blood Pressure Location Lt brachial Position Sitting Pulse 92 Intake Visit Reasons: Follow up H pylori, gastritis Intake Note: Shikha presents in the office as a follow up H Pylori and Gastritis. CC: states that she wants to know about the results of her hp pylori. Small Package And Bundle Sorter Clerk Required: Yes Allergies No Known Allergies Allergy (Verified 02/12/25 13:25) HPI Comments Details: 34 y.o F with PMH of who is here for question of gastritis. 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 Reports longstanding hx of chronic gastritis with H Pylori. Has had 3 attempts to treat with H Pylori. Most recently received H Pylori tx in 2019. SHe is unsure if it has been eradicated or she needs to be retreated. Otherwise no acute GI issues including abd pain, n,v, change in appetite. No fam hx of stomach ca or colon ca. Does not smoke or drink. 05/06/25: Here for follow up. Accompanied by her partner. Reports no GI sx. Results of neg H Pylori reviewed and pt was reassured. [facility] Medical History History of Helicobacter pylori infection Headache Heart palpitations Surgical History H/O: Family History Mother High blood pressure Social History Housing: House Patient Tobacco Use Status: Never used Tobacco e-Cigarette/Vaping Use: Never Used Second Hand Smoke Exposure: No service: No Current occupational status: unemployed Current occupational exposures/hazards: No Cognitive needs: No Hearing needs: No Vision needs: No Review of Systems Const All systems reviewed & are unremarkable except as noted in HPI and below Physical Exam Exam Exam: No apparent distress Nonicteric Abdomen soft, nondistended Alert and oriented x3, normal gait Vital Signs: Last Vital Signs Pulse 92 05/06/25 10:43 BP 124/84 05/06/25 10:43 BMI result Body Mass Index 31.6 Assessment & Plan Assessment & Plan (1) H. pylori infection: Code(s): A04.8 - Other specified bacterial intestinal infections Plan Prev reported hx of difficult to eradicate H Pylori. This is now negative i.e successfully treated. No other testing needed at this time to include endoscopy in the absence of any GI sx. Follow up PRN. Coding Level of Care Code Est Pt Level 3 (50054) Diagnoses H. pylori infection A04.8
[2025-05-06 10:43] VITALS: BP 124/84; PULSE 92; BMI 31.6
--- OUTSIDE RECORDS SUMMARY | 2025-05-06 20:43 | XMS_ITS | Clinical Summary ---
Author Organization [facility] ity Address [address] [place] [address] Care Team Providers Care Filter Tender Name Role Phone Unavailable Primary Care Provider [...] Screening 01/18/2024 Depression Screening 06/18/2024 COVID-19 Vaccine (1 - 2024-2 6 season) 2025 Influenza Vaccine (#1) 2025 RSV [...]
== END 2025-05-06 11:07 | disposition home or self-care (01) ==
LOC: HO.HGI 10:37
PROVIDERS: PCP Nurse Practitioner Family; Visit Provider Internal Medicine
DX: A04.8 Other specified bacterial intestinal infections (principal)
CPT/HCPCS: 99213

== ENCOUNTER → 2025-05-06 10:36 | Outpatient (BNVA) | payer OTHER, SELFPAY | PROVIDERS: PCP Nurse Practitioner Family; Visit Provider Internal Medicine | DX: Z71.2 Person consulting for explanation of examination or test findings (principal); Z86.19 Personal history of other infectious and parasitic diseases | CPT/HCPCS: 99212 ==